=== PATIENT | male | born 1990 | race Two or more races ===

== ENCOUNTER 2017-04-07 13:39 | Emergency (ER) | payer SELFPAY ==
[~2017-04-07] VITALS: Ht 175.3 cm; Wt 69.9 kg
[2017-04-07 14:06] VITALS: BP 125/76
[2017-04-07] MEDS ORDERED: ACETAMINOPHEN ES 500 MG TABLET PO ONE (15:30)
== END 2017-04-07 15:14 | disposition home or self-care (01) ==
LOC: ER 13:43
DX: M54.5 Low back pain (principal); M79.605 Pain in left leg; F17.200 Nicotine dependence, unspecified, uncomplicated; V49.9XXA Car occupant (driver) (passenger) injured in unspecified traffic accident, initial encounter; Y93.89 Activity, other specified; Y92.413 State road as the place of occurrence of the external cause; Y99.8 Other external cause status
CPT/HCPCS: 99282; A4606; Z7610